=== PATIENT | male | born 1955 | race Caucasian/White ===

== ENCOUNTER 2023-01-05 07:18 | Outpatient (CLI) | payer OTHER ==
[2023-01-05 14:44] LABS: BASOPHILS # (AUTO) 0.1 10^3/uL (0.0-0.1); BASOPHILS % (AUTO) 1.3 %; EOSINOPHILS # (AUTO) 0.1 10^3/uL (0.0-0.7); EOSINOPHILS % (AUTO) 2.3 %; HCT - HEMATOCRIT 47.6 % (42.0-52.0); HGB - HEMOGLOBIN 15.8 g/dL (14.0-18.0); LYMPHOCYTES % (AUTO) 35.5 %; MEAN CORPUSCULAR HEMOGLOBIN 31.1 pg (27.0-31.0); MEAN CORPUSCULAR HGB CONC 33.2 g/dL (32.0-36.0); MEAN CORPUSCULAR VOLUME 93.7 fL (80.0-94.0); MEAN PLATELET VOLUME 10.6 fL (7.4-11.4); MONOCYTES # (AUTO) 0.5 10^3/uL (0.0-1.0); MONOCYTES % (AUTO) 8.3 %; NEUTROPHILS # (AUTO) 2.9 10^3/uL (1.5-6.6); NEUTROPHILS % (AUTO) 52.4 %; PLT - PLATELET COUNT 202 10^3/uL (130-450); RED BLOOD COUNT 5.08 10^6/uL (4.70-6.10); RED CELL DISTRIBUTION WIDTH 12.9 % (12.0-15.0); WHITE BLOOD COUNT 5.6 x10^3/uL (4.8-10.8)
[2023-01-05 15:49] LABS: ALBUMIN 4.1 g/dL (3.2-5.5); ALBUMIN/GLOBULIN RATIO 1.5 (1.0-2.2); ALKALINE PHOSPHATASE 46 IU/L (42-121); ALT ALANINE AMINOTRANSFERASE 15 IU/L (10-60); AST ASPARTATE AMINOTRANSFERASE 16 IU/L (10-42); BILIRUBIN,TOTAL 0.8 mg/dL (0.2-1.0); BUN - BLOOD UREA NITROGEN 18 mg/dL (6-20); CALCIUM 9.1 mg/dL (8.5-10.3); CARBON DIOXIDE - CO2 28 mmol/L (21-32); CHLORIDE 106 mmol/L (101-111); CREATININE 0.7 mg/dL (0.6-1.2); GFR - MDRD 112 (>89); GLUCOSE 110 mg/dL (70-100); POTASSIUM 3.9 mmol/L (3.5-5.0); PSA TOTAL 12.983 ng/mL (0.000-2.000); SODIUM 140 mmol/L (135-145); TOTAL PROTEIN 6.8 g/dL (6.7-8.2)
[2023-01-05 15:51] LABS: FREE T3 2.96 pg/mL (2.5-3.9); THYROID STIMULATING HORMONE 2.17 uIU/mL (0.34-5.60)
[2023-01-05 15:52] LABS: FREE T4 (FREE THYROXINE) 1.04 ng/dL (0.58-1.64)
[2023-01-05 15:56] LABS: CRP HIGH SENSITIVITY < 0.5 mg/L
[2023-01-05 15:57] LABS: FERRITIN 35.6 ng/mL (23.9-336.2); FIBRINOGEN 315 mg/dL (220-496)
[2023-01-05 16:16] LABS: PSA FREE 1.756 ng/mL (0.16-2.81)
[2023-01-05 20:51] LABS: ESTIMATED AVERAGE GLUCOSE 108 mg/dL (70-100); HEMOGLOBIN A1c% 5.4 % (4.27-6.07)
[2023-01-06 05:13] LABS: VITAMIN D 25-HYDROXY 51.7 ng/mL (30.0-100.0)
[2023-01-06 07:10] LABS: ESTRADIOL 22.9 pg/mL (7.6-42.6)
[2023-01-17 06:08] LABS: 1,25-DIHYDROXY VITAMIN D-2 <10 pg/mL (.); 1,25-DIHYDROXY VITAMIN D-3 54 pg/mL (.); TOTAL 1,25-DIHYDROXYVITAMIN D 57 pg/mL (.)
== END 2023-01-05 07:19 | disposition home or self-care (01) ==
LOC: LAB.S 07:18
PROVIDERS: ATTEND Preventive Medicine Public Health & General Preventive Medicine
DX: C61 Malignant neoplasm of prostate (principal); N41.0 Acute prostatitis; E29.1 Testicular hypofunction; M19.90 Unspecified osteoarthritis, unspecified site; R53.83 Other fatigue; E03.9 Hypothyroidism, unspecified; E55.9 Vitamin D deficiency, unspecified; T38.5X5A Adverse effect of other estrogens and progestogens, initial encounter; E27.9 Disorder of adrenal gland, unspecified
CPT/HCPCS: 36415; 80053; 80061; 81599; 82306; 82390; 82525; 82626; 82642; 82652; 82670; 82672; 82728; 83036; 83090; 83615; 83625; 83704; 83789; 84153; 84154; 84410; 84439; 84443; 84481; 85025; 85379; 85384; 85651; 86141